=== PATIENT | female | born 1985 | race American Indian/Alaskan Native ===

== ENCOUNTER 2020-07-21 09:37 | Emergency (ER) | payer SELFPAY ==
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
[2020-07-21 11:32] VITALS: BP 144/100
[2020-07-21 11:48] LABS: HCG Qualitative,Urine Negative (Negative)
[2020-07-21 11:50] LABS: Amphetamine Screen,Urine Negative; Benzodiazepines Screen,Urine Negative; Cannabinoid Screen,Urine Negative; Cocaine Screen,Urine Negative; Methadone Screen,Urine Negative; Opiate Screen,Urine Negative
[2020-07-21 12:29] LABS: Basophils % (Auto) 0.4 % (0.0-1.8); Eosinophils # (Auto) 0.1 K/mm3 (0.0-0.4); Eosinophils % (Auto) 1.4 % (0.0-4.3); Hematocrit 37.4 % (30.3-42.9); Hemoglobin 12.7 gm/dl (10.1-14.3); Lymphocytes # (Auto) 1.6 K/mm3 (1.2-5.4); Lymphocytes % (Auto) 17.5 % (13.4-35.0); Mean Corpuscular HGB Conc 34 % (30-34); Mean Corpuscular Volume 99 fl (79-97); Monocytes # (Auto) 0.8 K/mm3 (0.0-0.8); Monocytes % (Auto) 8.8 % (0.0-7.3); Platelet Count 218 K/mm3 (140-440); Red Blood Count 3.78 M/mm3 (3.65-5.03)
--- NOTE | 2020-07-21 12:47 | Cat Scan Report ---
CT MAXILLOFACIAL WITHOUT CONTRAST INDICATION / CLINICAL INFORMATION: wound/swell to face. TECHNIQUE: All CT scans at this location are performed using CT dose reduction for ALARA by means of automated e xposure control. COMPARISON: None available. FINDINGS: There is a focal defect involving the skin overlying the left buccal region and correlation would be needed regarding no direct trauma this region. Furthermore, there are extensive inflammator y changes involving underlying buccal soft tissues including multiple scattered foci of air. There is notable enlargement and edematous changes of the left masseter muscle. The Inflammatory process also extends along the anterior margin of the left parotid gland as well as involving the soft tissues la teral to the left mandible. While there are extensive edematous changes, no well-defined fluid collec tion is seen to indicate focal abscess on the current noncontrast study. There are no significant ero sive changes of the visualized bony structures. FACIAL BONES: There is no CT evidence of acute fracture involving the facial bones. The orbital moctezuma , sinuses and zygomatic arches appear intact. There is slight angulation of the right nasal bone. How ever, there is no significant adjacent edema and this finding may be developmental or related to prev ious trauma. PARANASAL SINUSES: There is mild mucosal thickening involving maxillary sinuses bilaterally at. There is narrowing of the right ostomy all complexes with focal opacification within the adjacent right et hmoid air cells. The frontal and sphenoid sinuses are clear. ORBITS: The optic globes image appropriate size and configuration. There is no clear evidence of sign ificant post septal inflammatory changes. VISUALIZED INTRACRANIAL STRUCTURES: No significant abnormality. ADDITIONAL FINDINGS: The visualized mastoid air cells are pneumatized. There is a 1.2 cm low attenuat ing lesion within the visualized right lobe of the thyroid gland which is nonspecific. This finding i s fairly homogeneous without calcification. IMPRESSION: 1. There are extensive inflammatory changes centered along the left buccal soft tissues with defect involving the overlying skin as detailed above. 2. There is a 1.2 similar low attenuating lesion within the visualized right lobe of the tyroid gland which is nonspecific. INCIDENTAL THYROID NODULE (ITN) DETECTED ON CT OR MRI (1) * Suspicious CT or MRI findings (2) * Abnormal lymph nodes * ipsilateral nodes >1.5 cm in short axis (jugulodigastric) * ipsilateral nodes >1 cm in short axis (other) * Invasion of local tissues by the thyroid nodule * Evaluate with thyroid ultrasound (4) * No suspicious CT or MRI findings (2) * Limited life expectancy and comorbidities (3) * No further evaluation * General population * Age < 35 years * <1 cm -- No further evaluation * >= 1 cm -- Evaluate with thyroid ultrasound (4) * Age >= 35 years * <1.5 cm -- No further evaluation * >= 1.5 cm -- Evaluate with thyroid ultrasound (4) * Notes * (1) The recommendations are offered as general guidance and do not apply to all patients, such as those with clinical risk factors for thyroid cancer. * (2) Suspicious CT/MRI features include: abnormal lymph nodes and/or invasion of local tissues by t he thyroid nodule. Abnormal lymph node features include: calcifications, cystic components, and/or in creased enhancement. Talha enlargement is less specific for thyroid cancer metastases, but further ev aluation could be considered if an ITN has ipsilateral nodes >1.5 cm in short axis for jugulodigastri c lymph nodes, and >1 cm for other lymph nodes. * (3) Limited life expectancy and comorbidities that increase the risk of treatment or are more like ly to cause morbidity and mortality than the thyroid cancer itself, given the nodule size; see text f or details. Patients with comorbidities or limited life expectancy should not have further evaluation of the ITN, unless it is warranted clinically, or specifically requested by the patient or referring physician. * (4) Further management of the ITN after thyroid ultrasound, including fine-needle aspiration, shou ld be based on ultrasound findings. J Am Radha Radiol 2015;12:143-150. Online: [email or web address] PDF: [email or web address] Signer Name: Teofilo Farr MD Signed: 07/21/2020 12:43 PM Workstation Name: [email or web address]
[2020-07-21 12:50] LABS: Blood Urea Nitrogen 5 mg/dL (7-17); Calcium 9.5 mg/dL (8.4-10.2); Hemolysis Index 16
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
[2020-07-21 13:02] LABS: BUN/Creatinine Ratio 10
[2020-07-21] MEDS ORDERED: LIDOCAINE (1%) 10 MG/1 ML VIAL 20 ML MDV INFILTRATI ONE (13:32)
[2020-07-21] MEDS ORDERED: CLINDAMYCIN 150 MG CAP PO NR (13:32)
[2020-07-21] MEDS ORDERED: oxyCODONE /ACETAMINOPHEN 5-325MG TAB PO ONE (13:37)
== END 2020-07-21 14:35 | disposition home or self-care (01) ==
LOC: ED 09:37
DX: S01.81XA Laceration without foreign body of other part of head, initial encounter (principal); S41.112A Laceration without foreign body of left upper arm, initial encounter; F17.200 Nicotine dependence, unspecified, uncomplicated; F12.90 Cannabis use, unspecified, uncomplicated; Z79.899 Other long term (current) drug therapy; X58.XXXA Exposure to other specified factors, initial encounter; Y93.89 Activity, other specified; Y92.89 Other specified places as the place of occurrence of the external cause; Y99.8 Other external cause status
CPT/HCPCS: 36415; 70486; 80048; 80307; 81025; 85025